=== PATIENT | male | born 1980 | race Caucasian/White ===

== ENCOUNTER 2018-07-24 17:52 | Emergency (ER) | payer BC ==
[2018-07-24 21:31] LABS: ADD MAN DIFF? NO
[2018-07-24 21:32] LABS: BASOPHIL # 0.1 10^3/ul (0.0-0.1); BASOPHILS % 0.5 % (0.0-2.0); EOSINOPHILS # 0.1 10^3/ul (0.0-0.5); EOSINOPHILS % 0.7 % (0.0-7.0); HEMATOCRIT 41.5 % (42.0-52.0); HEMOGLOBIN 13.9 g/dl (14.0-18.0); LYMPHOCYTES # 2.1 10^3/ul (0.8-2.9); LYMPHOCYTES % 14.4 % (15.0-51.0); MEAN CORPUSCULAR HEMOGLOBIN 29.5 pg (29.0-33.0); MEAN CORPUSCULAR HGB CONC 33.5 g/dl (32.0-37.0); MEAN CORPUSCULAR VOLUME 88.1 fl (82.0-101.0); MEAN PLATELET VOLUME 9.3 fl (7.4-10.4); MONOCYTE # 0.8 10^3/ul (0.3-0.9); MONOCYTES % 5.2 % (0.0-11.0); NEUTROPHIL # 11.3 10^3/ul (1.6-7.5); NEUTROPHILS % 78.5 % (39.0-77.0); PLATELET COUNT 369 10^3/UL (140-415); RED BLOOD COUNT 4.71 10^6/ul (4.70-6.10); RED CELL DISTRIBUTION WIDTH 12.6 % (11.5-14.5)
[2018-07-24 21:32] LABS: WHITE BLOOD COUNT 14.4 10^3/ul (4.8-10.8)
[2018-07-24] MEDS: SOD CHLORIDE 0.9% 1,000 ML IV (21:33)
[2018-07-24] MEDS: ONDANSETRON 4 MG INJ IV (21:33)
[2018-07-24] MEDS: morphine 4 MG/ML VIAL IV (21:33)
[2018-07-24 21:51] LABS: ALANINE AMINOTRANSFERASE 84 IU/L (13-69); ALBUMIN 4.4 g/dl (3.3-4.9); ALBUMIN/GLOBULIN RATIO 1.69; ALKALINE PHOSPHATASE 62 IU/L (42-121); AMYLASE 103 U/L (11-123); ANION GAP 12 (5-13); ASPARTATE AMINO TRANSFERASE 43 IU/L (15-46); BILIRUBIN,INDIRECT 0.5 mg/dl (0-1.1); BILIRUBIN,TOTAL 0.5 mg/dl (0.2-1.3); BLOOD UREA NITROGEN 23 mg/dl (7-20); CALCIUM 9.1 mg/dl (8.4-10.2); CARBON DIOXIDE 27 mmol/L (21-31); CHLORIDE 104 mmol/L (97-110); CREATININE 1.06 mg/dl (0.61-1.24); Estimated GFR > 60 mL/min (>60); GLUCOSE 116 mg/dl (70-220); INR 0.97; LIPASE 69 U/L (23-300); POTASSIUM 4.1 mmol/L (3.5-5.1); SODIUM 143 mmol/L (135-144)
[2018-07-24 21:52] LABS: PARTIAL THROMBOPLASTIN TIME 25.8 Sec (23.0-35.0)
[2018-07-24 22:02] LABS: TROPONIN-I < 0.012 ng/ml (0.000-0.120)
[2018-07-24] MEDS: FAMOTIDINE 20 MG INJ IV (22:28)
[2018-07-24] MEDS: TAMSULOSIN (SR) 0.4 MG CAP PO (23:12)
[2018-07-24] MEDS: BELLADONNA/PHENOBARBITAL TAB PO (23:12)
[2018-07-24] MEDS: CIPROFLOXACIN 400MG/D5W 200 ML IVPB (23:13)
[2018-07-24] MEDS: LIDOCAINE/MYLANTA 40 ML BTL PO (23:13)
[2018-07-24] MEDS: KETOROLAC 30 MG INJ IV (23:14)
[2018-07-24 23:23] LABS: ADD UMIC YES; UR AMORPHOUS CRYSTAL FEW /HPF (NONE SEEN); UR ASCORBIC ACID NEGATIVE (NEGATIVE); UR BILIRUBIN (Dip) NEGATIVE (NEGATIVE); UR BLOOD (Dip) 2+ mg/dL (NEGATIVE); UR CLARITY CLOUDY (CLEAR); UR COLOR YELLOW (YELLOW); UR GLUCOSE (Dip) NEGATIVE (NEGATIVE); UR KETONES (Dip) NEGATIVE (NEGATIVE); UR LEUKOCYTE ESTERASE (Dip) NEGATIVE Leu/ul (NEGATIVE); UR MUCUS FEW /HPF (NONE SEEN); UR NITRITE (Dip) NEGATIVE (NEGATIVE); UR RBC 95 /HPF (0-5); UR SPECIFIC GRAVITY (Dip) 1.028 (1.003-1.030); UR TOTAL PROTEIN (Dip) 1+ mg/dl (NEGATIVE); UR UROBILINOGEN (Dip) NEGATIVE (NEGATIVE); UR WBC 3 /HPF (0-5)
== END 2018-07-25 00:41 | disposition home or self-care (01) ==
LOC: E/R 07-25 00:41
DX: N20.0 Calculus of kidney (principal)
CPT/HCPCS: 74176; 80053; 81001; 82150; 83690; 84484; 85025; 85610; 85730; 87086; 93005; 96374; 96375; 99285-25